=== PATIENT | female | born 1960 | race Caucasian/White ===

== ENCOUNTER 2019-01-29 09:51 | Emergency (ER) | payer MEDICAID, OTHER ==
[2019-01-29 09:52] VITALS: BMI 24.9
[2019-01-29 10:20] VITALS: RESP 18; TEMP 98.7
--- NOTE | 2019-01-29 10:20 | ED PDOC ---
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 Pain is located over left lateral and posterior ribs. No head strike or LOC. Pt is not on blood thinners. 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 Denies saddle anesthesia, bowel/bladder incontinence, numbness, weakness, parethesias, vision changes, dizziness, headache, neck pain, abdominal pain, nausea, vomiting, or any other associated symptoms. Past Medical History - Infectious Disease Hx of Infectious Diseases: None - Cardiac Hx Hypertension: Yes - Psychiatric Hx Substance Use: No - Anesthesia Hx Anesthesia: No Family/Social History - Physician Review Nursing Documentation Reviewed: Yes Family/Social History: No Known Family HX Smoking Status: Never Smoked Hx Alcohol Use: No Hx Substance Use: No Allergies/Home Meds Allergies/Adverse Reactions: Allergies No Known Allergies Allergy (Verified 01/29/19 10:20) Home Medications: Home Meds Medication Instructions Recorded Confirmed amLODIPine [Norvasc] 10 mg PO DAILY 01/29/19 01/29/19 Review of Systems - Review of Systems Constitutional: Normal. absent: Fatigue, Fevers Eyes: Normal. absent: Vision Changes, Photophobia, Eye Pain ENT: Normal. absent: Sore Throat, Sinus Congestion Respiratory: Normal. absent: SOB, Cough Cardiovascular: Normal. absent: Chest Pain, Palpitations, Syncope Gastrointestinal: Normal. absent: Abdominal Pain, Stool Changes, Nausea, Vomiting Genitourinary Female: Normal. absent: Dysuria, Frequency Musculoskeletal: Back Pain. absent: Neck Pain Skin: Normal. absent: Rash, Other (bruising) Neurological: Normal. absent: Headache, Dizziness, Focal Weakness, Gait Changes, Speech Changes, Facial Droop, Disequilibrium Endocrine: Normal Hemo/Lymphatic: Normal Psychiatric: Normal Physical Exam Vital Signs Reviewed: Yes Temperature: Afebrile Blood Pressure: Normal Pulse: Regular Respiratory Rate: Normal Appearance: Positive for: Well-Appearing, Non-Toxic, Comfortable Pain Distress: None Mental Status: Positive for: Alert and Oriented X 3 - Systems Exam Head: Present: Atraumatic, Normocephalic Pupils: Present: PERRL Extroacular Muscles: Present: EOMI Conjunctiva: Present: Normal Mouth: Present: Moist Mucous Membranes Neck: Present: Normal Range of Motion. No: MIDLINE TENDERNESS, Paraspinal Tenderness Respiratory/Chest: Present: Clear to Auscultation, Good Air Exchange, Tender to Palpation (left lateral ribs). No: Respiratory Distress, Accessory Muscle Use Cardiovascular: Present: Regular Rate and Rhythm, Normal S1, S2, Peripheal Pulses Present Abdomen: Present: Normal Bowel Sounds. No: Tenderness, Distention, Peritoneal Signs, Rebound, Guarding Back: Present: Normal Inspection, Paraspinal Tenderness (left thoracic). No: CVA Tenderness, Midline Tenderness Upper Extremity: Present: Normal Inspection. No: Cyanosis, Edema Lower Extremity: Present: Normal Inspection. No: Edema Neurological: Present: GCS=15, CN II-XII Intact, Speech Normal, Motor Func Grossly Intact, Normal Sensory Function, Gait Normal Skin: Present: Warm, Dry, Normal Color. No: Rashes Psychiatric: Present: Alert, Oriented x 3, Normal Insight, Normal Concentration, Normal Affect, Normal Mood Medical Decision Making ED Course and Treatment: 01/29/19 10:16 Initial Plan: * Thoracic spine XR * Left Ribs and CXR * Tylenol * Lidoderm Patch Patient reports decrease in pain with medication. Xrays negative for fracture or other acute pathology. Diagnostic testing results and plan of care discussed with patient. Strict instructions given regarding prescription use, importance of followup, and signs/symptoms to return to ER including worsening pain, difficulty breathing, dizziness, or any other new/worsening symptoms. Pt verbalized understanding of discussion. Patient is A&Ox3, ambulating with steady gait, with vital signs stable for discharge. Disposition/Present on Arrival - Present on Arrival Any Indicators Present on Arrival: No History of DVT/PE: No History of Uncontrolled Diabetes: No Urinary Catheter: No History Surgical Site Infection Following: None - Disposition Have Diagnosis and Disposition been Completed?: Yes Diagnosis: Fall from slipping on ice, Back pain, Muscle strain Disposition: HOME/ ROUTINE Disposition Time: 12:00 Patient Plan: Discharge Condition: IMPROVED Discharge Instructions (ExitCare): Muscle Strain (DC) Additional Instructions: Tylenol as needed for pain Lidoderm patches daily, 12 hours on 12 hours off Rest, no strenuous activity Followup with primary doctor within 2 days Followup with orthopedic doctor within 2 days Return to ER with any new/worsening symptoms Prescriptions: Lidocaine 5% [Lidoderm] 1 ea TD DAILY PRN #30 patch PRN Reason: Pain, Mild (1-3) Referrals: Kiya Martinez MD [Staff Provider] - Follow up with primary Juana Irwin MD [Medical Doctor] - Follow up with primary [facility] [place] [Outside] - Follow up with primary Forms: [employer] [facility] (Central African), WORK NOTE
[2019-01-29] MEDS ORDERED: Lidocaine 5% Patch TD STA (10:44)
--- NOTE | 2019-01-29 12:16 | RAD ---
Date of service: 01/29/2019 HISTORY: fall, left sided mid back pain COMPARISON: No prior. FINDINGS: BONES: There is mild curvature of the spine convex to the left with a Salgado angle of 13 degrees. There are no vertebral compression fractures. DISC SPACES: Normal. SOFT TISSUES: Normal. OTHER FINDINGS: None. IMPRESSION: There is mild curvature of the spine convex to the left with a Salgado angle of 13 degrees. There are no vertebral compression fractures.
--- NOTE | 2019-01-29 12:18 | RAD ---
Date of service: 01/29/2019 PROCEDURE: Radiographs of the chest and bilateral ribs HISTORY: fall, posterior lower rib tenderness COMPARISON: None available. TECHNIQUE: Frontal radiograph of the chest and multiple oblique radiographs of the bilateral ribs were obtained. FINDINGS: RIGHT RIBS: No fracture or focal lesion visualized. LEFT RIBS: No fracture or focal lesion visualized. LUNGS: Clear. PLEURA: No pneumothorax or pleural fluid. CARDIOVASCULAR: Normal cardiac size. No pulmonary vascular congestion. No aortic atherosclerotic calcification present OTHER FINDINGS: None. IMPRESSION: Unremarkable radiographs of the chest and bilateral ribs. No rib fracture.
[2019-01-29 12:39] VITALS: PULSE 75; O2SAT 99
[2019-01-29 12:54] VITALS: BP 132/82
== END 2019-01-29 13:00 | disposition home or self-care (01) ==
LOC: ED 09:51
DX: S29.012A Strain of muscle and tendon of back wall of thorax, initial encounter (principal); W00.0XXA Fall on same level due to ice and snow, initial encounter; I10 Essential (primary) hypertension; M54.6 Pain in thoracic spine

== ENCOUNTER 2019-02-16 10:29 | Emergency (ER) | payer MEDICAID ==
[2019-02-16 10:31] VITALS: BMI 28.3
[2019-02-16 11:01] VITALS: RESP 18; TEMP 97.6
[2019-02-16] MEDS ORDERED: TDAP Vaccine 0.5 mL Syr IM ONE (11:58)
--- NOTE | 2019-02-16 11:59 | ED PDOC ---
Arrival/HPI - General Chief Complaint: Trauma Historian: Other (Daughter) - History of Present Illness Narrative History of Present Illness (Text): 02/16/19 11:49 58 year old female, whose past medical history is significant for TIA, and HTN, who presents to the emergency department complaining of left sided facial pain and pain in left arm and hand s/p trip and fall earlier today. Daughter reports patient tripped over a curb and fell forward on her face and left side. She endorses difficulty moving arm and fingers, pain with movement, and a "busted lip", but denies any nausea, vomiting, LOC, loss of sensation, dizziness, chest pain, back pain, leg pain, or any other complaints. Patient reportedly ambulates without a [place]. Time/Duration: 24 hours Symptom Onset: Gradual Symptom Course: Unchanged Activities at Onset: Light Context: Walking Past Medical History - Provider Review Nursing Documentation Reviewed: Yes - Infectious Disease Hx of Infectious Diseases: None - Reproductive Menopause: Yes - Cardiac Hx Hypertension: Yes - Psychiatric Hx Substance Use: No - Anesthesia Hx Anesthesia: No Family/Social History - Physician Review Nursing Documentation Reviewed: Yes Family/Social History: Unknown Family HX Smoking Status: Never Smoked Hx Alcohol Use: No Hx Substance Use: No Allergies/Home Meds Allergies/Adverse Reactions: Allergies No Known Allergies Allergy (Verified 01/29/19 10:20) Home Medications: Home Meds Medication Instructions Recorded Confirmed amLODIPine [Norvasc] 10 mg PO DAILY 01/29/19 01/29/19 Review of Systems - Physician Review All systems were reviewed & negative as marked: Yes - Review of Systems Constitutional: absent: Fevers Respiratory: absent: SOB Cardiovascular: absent: Chest Pain Gastrointestinal: absent: Nausea, Vomiting Musculoskeletal: absent: Back Pain Neurological: absent: Headache, Dizziness Endocrine: absent: Diaphoresis Physical Exam Vital Signs Reviewed: Yes Vital Signs Temp Pulse Resp BP Pulse Ox 02/16/19 10:30 97.6 F 81 18 157/98 H 97 Temperature: Afebrile Blood Pressure: Hypertensive Pulse: Regular Respiratory Rate: Normal Appearance: Positive for: Well-Appearing, Non-Toxic, Comfortable Pain Distress: None Mental Status: Positive for: Alert and Oriented X 3 - Systems Exam Head: Present: Atraumatic, Normocephalic Pupils: Present: PERRL Extroacular Muscles: Present: EOMI Conjunctiva: Present: Normal Mouth: Present: Moist Mucous Membranes, Other. No: Normal Lips (left lip contusion. small local swelling of left lip) Nose (External): Present: Abrasion (superficial abrasion to left nose ) Neck: Present: Normal Range of Motion Respiratory/Chest: Present: Clear to Auscultation, Good Air Exchange. No: Respiratory Distress, Accessory Muscle Use Cardiovascular: Present: Regular Rate and Rhythm, Normal S1, S2. No: Murmurs Abdomen: No: Tenderness, Distention, Peritoneal Signs Back: Present: Normal Inspection Upper Extremity: Present: Normal ROM (full ROM of left elbow), NORMAL PULSES, Other (unable to adduct left arm greater than 45 degrees. Unable to adduct or oppose left thumb. decreased flexion, adduction to left shoulder due to pain ). No: Cyanosis, Edema, Deformity (No obvious deformity to left arm. ) Lower Extremity: Present: Normal Inspection. No: Edema Neurological: Present: GCS=15, CN II-XII Intact, Speech Normal Skin: Present: Warm, Dry, Normal Color. No: Rashes Psychiatric: Present: Alert, Oriented x 3, Normal Insight, Normal Concentration Medical Decision Making ED Course and Treatment: 02/16/19 11:48 Impression: 58 year old female presents to the emergency department complaining of left sided facial pain and pain in left arm and hand s/p trip and fall earlier today. Differential Diagnosis included but are not limited to: Plan: -- CT head -- Ibuprofen -- Tylenol -- Boostrix vaccine -- CT cervical spine\\ -- X-ray left elbow -- X-ray left hand -- X-ray left shoulder -- X-ray left humerus -- Reassess and disposition Prior Visits: Notes and results from previous visits were reviewed. Progress Notes: - RAD Interpretation Narrative RAD Interpretations (Text): 02/16/19 13:38 CT head shows : 1. No acute intracranial abnormality. 2. Old lacunar infarctions in the right mccall radiata, bilateral basal ganglia, right marianela hugo and cystic encephalomalacia in the left posterior inferior cerebellar hemisphere, sequela of remote PICA territory infarction. 3. Mild chronic microangiopathic changes and mild age-related global parenchymal volume loss CT spine shows: No acute fracture or traumatic anterior listhesis. 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 I have reviewed the chart and agree that the record accurately reflects my personal performance of the history, physical exam, medical decision making, and the department course for this patient. I have also personally directed, reviewed, and agree with the discharge instructions and disposition. Disposition/Present on Arrival - Present on Arrival Any Indicators Present on Arrival: No History of DVT/PE: No History of Uncontrolled Diabetes: No Urinary Catheter: No History of Decub. Ulcer: No History Surgical Site Infection Following: None - Disposition Have Diagnosis and Disposition been Completed?: No Diagnosis: Humerus shaft fracture Disposition: HOME/ ROUTINE Disposition Time: 15:35 Patient Plan: Discharge Patient Problems: Current Active Problems Problem Status Onset Humerus shaft fracture Acute Condition: STABLE Discharge Instructions (ExitCare): Upper Arm Fracture Print Language: ERITREAN Additional Instructions: All medical record entries made by the Scribe were at my direction and personally dictated by me. I have reviewed the chart and agree that the record accurately reflects my personal performance of the history, physical exam, medical decision making, and the department course for this patient. I have also personally directed, reviewed, and agree with the discharge instructions and disposition. Please follow up with the orthopedic surgeon in 1 week Please KEEP SLING ON while sleeping Referrals: Rex Wick MD [Family Provider] - Follow up with primary Danilo Blackman DO [Staff Provider] - Follow up with primary Forms: [employer] (Maldivian)
--- NOTE | 2019-02-16 13:02 | CT ---
Date of service: 02/16/2019 PROCEDURE: CT HEAD WITHOUT CONTRAST. HISTORY: Headache COMPARISON: None available. TECHNIQUE: Axial computed tomography images were obtained through the head/brain without intravenous contrast. Radiation dose: Total exam DLP = 837.05 mGy-cm. This CT exam was performed using one or more of the following dose reduction techniques: Automated exposure control, adjustment of the mA and/or kV according to patient size, and/or use of iterative reconstruction technique. FINDINGS: HEMORRHAGE: No intracranial hemorrhage. BRAIN: There is a large chronic lacunar infarction in the right mccall radiata. There are smaller chronic lacunar infarctions in bilateral basal ganglia, right marianela hugo and there is a large wedge-shaped cystic encephalomalacia in the left posterior inferior cerebellar hemisphere. There are mild chronic microangiopathic changes. There is no mass, mass effect or abnormal extra-axial fluid collection. VENTRICLES: There is mild age-related global parenchymal volume loss and proportionate enlargement of the ventricles and cortical sulci. CALVARIUM: There is no calvarial fracture or extracranial soft tissue swelling. PARANASAL SINUSES: There is mild mucoperiosteal thickening in the left posterior ethmoid air cells. The remaining included paranasal sinuses are clear. MASTOID AIR CELLS: Predominantly clear. OTHER FINDINGS: None. IMPRESSION: 1. No acute intracranial abnormality. 2. Old lacunar infarctions in the right mccall radiata, bilateral basal ganglia, right marianela hugo and cystic encephalomalacia in the left posterior inferior cerebellar hemisphere, sequela of remote PICA territory infarction. 3. Mild chronic microangiopathic changes and mild age-related global parenchymal volume loss.
--- NOTE | 2019-02-16 13:06 | CT ---
Date of service: 02/16/2019 PROCEDURE: CT Cervical Spine without contrast HISTORY: Fall COMPARISON: None available. TECHNIQUE: Axial computed tomography images were obtained of the cervical spine without the use of intravenous contrast. Coronal and sagittal reformatted images were created and reviewed. Radiation dose: Total exam DLP = 449.94 mGy-cm. This CT exam was performed using one or more of the following dose reduction techniques: Automated exposure control, adjustment of the mA and/or kV according to patient size, and/or use of iterative reconstruction technique. FINDINGS: VERTEBRAE: There is normal alignment of the cervical vertebral bodies. There is normal cervical lordosis. There is no acute fracture or traumatic anterior listhesis. There is diffuse bone demineralization. The craniocervical junction is normal. There is mild degenerative osteoarthrosis in the atlantoaxial joint. DISCS/SPINAL CANAL/NEURAL FORAMINA: There is mild multilevel degenerative disc disease due to combination of disc osteophyte complexes, uncovertebral joint hypertrophy and multilevel facet arthropathy without spinal canal stenosis or neural foraminal narrowing. PARASPINAL SOFT TISSUES: The paraspinous soft tissues are normal. OTHER FINDINGS: No apical pneumothorax. IMPRESSION: No acute fracture or traumatic anterior listhesis.
--- NOTE | 2019-02-16 14:08 | RAD ---
PROCEDURE: Radiographs of the left humerus. HISTORY: s/p fall COMPARISON: None. TECHNIQUE: 2 views obtained. FINDINGS: BONES: There is an acute transverse nondisplaced fracture in the neck of the humerus. There is diffuse bone demineralization. Bone alignment is normal. SOFT TISSUES: Normal. OTHER FINDINGS: None. IMPRESSION: Acute transverse nondisplaced fracture in the neck of the humerus. No dislocation. The final report is tagged to the PA review folder.
--- NOTE | 2019-02-16 14:15 | RAD ---
Date of service: 02/16/2019 PROCEDURE: <SHOULDER LEFT> HISTORY: s/p fall COMPARISON: No prior. FINDINGS: BONES: There is an acute transverse nondisplaced fracture in the neck of the humerus. There is diffuse bone demineralization bone alignment is normal. JOINTS: The glenohumeral and acromioclavicular joints are preserved. No significant degenerative osteoarthrosis. SOFT TISSUES: Normal. OTHER FINDINGS: None. IMPRESSION: Acute transverse nondisplaced fracture in the neck of the humerus. No evidence for dislocation.
--- NOTE | 2019-02-16 14:16 | RAD ---
Date of service: 02/16/2019 PROCEDURE: Radiographs of the left elbow. HISTORY: s/p fall COMPARISON: No prior. TECHNIQUE: 3 views obtained. FINDINGS: BONES: There is diffuse bone demineralization. Bone alignment is normal. No acute displaced fracture or bone destruction. JOINTS: Normal. No osteoarthritis. SOFT TISSUES: Normal. JOINT EFFUSION: None. OTHER FINDINGS: None IMPRESSION: No acute displaced fracture or dislocation.
--- NOTE | 2019-02-16 14:17 | RAD ---
PROCEDURE: Left Hand Radiographs. HISTORY: s/p fall COMPARISON: None. TECHNIQUE: 3 views obtained. FINDINGS: BONES: There is diffuse bone demineralization no acute displaced fracture or bone destruction. Bone alignment is normal. There is an old fracture deformity in the distal radius. JOINTS: Mild degenerative osteoarthrosis in the interphalangeal joints with SOFT TISSUES: Normal. OTHER FINDINGS: None. IMPRESSION: No acute displaced fracture or dislocation.
[2019-02-16 16:18] VITALS: BP 150/87; PULSE 70; O2SAT 100
== END 2019-02-16 16:18 | disposition home or self-care (01) ==
LOC: ED 10:29
DX: S42.302A Unspecified fracture of shaft of humerus, left arm, initial encounter for closed fracture (principal); W01.0XXA Fall on same level from slipping, tripping and stumbling without subsequent striking against object, initial encounter; Y92.89 Other specified places as the place of occurrence of the external cause; I10 Essential (primary) hypertension; Z86.73 Personal history of transient ischemic attack (TIA), and cerebral infarction without residual deficits; Z23 Encounter for immunization